=== PATIENT | female | born 1930 | race Caucasian/White ===

== ENCOUNTER 2018-03-10 10:57 | Observation (INO) | payer MEDICARE ==
[2018-03-09 11:23] LABS: BASOPHILS % 0.5 % (0.0-1.0); EOSINOPHILS # (AUTO) 0.2 (0.0-0.4); EOSINOPHILS % 2.3 % (0.0-6.0); HEMATOCRIT 43.5 % (34.2-44.1); HEMOGLOBIN 13.9 g/dL (12.0-16.0); LYMPHOCYTES # (AUTO) 1.5 (1.0-3.2); LYMPHOCYTES % 19.9 % (18.0-39.1); MEAN CORPUSCULAR HEMOGLOBIN 29.2 pg (28-32); MEAN CORPUSCULAR VOLUME 91.4 fL (81-99); MONOCYTES # (AUTO) 0.4 (0.2-0.8); MONOCYTES % 5.5 % (4.4-11.3); NEUTROPHILS # (AUTO) 5.3 (2.1-6.9); NEUTROPHILS % 71.7 % (38.7-80.0); PLATELET COUNT 165 x10e3/uL (140-360); RED BLOOD COUNT 4.76 x10e6/uL (3.6-5.1); RED CELL DISTRIBUTION WIDTH 13.3 % (11.7-14.4)
--- NOTE | 2018-03-09 11:56 | Diagnostic Imaging Report ---
PROCEDURE:CHEST 2 VIEWS TECHNIQUE:PA and lateral chest INDICATION:Preoperative evaluation for knee surgery COMPARISON:None. FINDINGS: Mild symmetric hyperinflation. Multiple calcified granulomas. Lungs otherwise clear and symmetric. No pleural effusions. Normal heart size. Intact skeleton with multilevel degenerative disc disease. Cholecystectomy clips. 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 Dictated by: Mychal Sin M.D. on 03/09/2018 at 11:57 Electronically approved by: Mychal Sin M.D. on 03/09/2018 at 11:57
[~2018-03-10] VITALS: Ht 160 cm; Wt 51.3 kg
[~2018-03-10 10:57] MED LIST: LEVOTHYROXINE50 MCG PO; OMEPRAZOLE40 MG PO
--- OUTSIDE RECORDS SUMMARY | 2018-03-10 11:00 | XMS REPORT ---
Author Author [facility] Address Unknown Phone Unavailable Care Team Providers Care Box Office Agent Name Role Phone JOVAN AMBROSE Unavailable Unavailable Problems This patient has no known problems. Allergies, Adverse Reactions, Alerts This patient has no known allergies or adverse reactions. Medications This patient has no known medications. Results Test Description Test Time Test Comments Text Results Atomic Results Result Comments CHEST 2 VIEWS [place] [address] Patient Name: ABBEY GOLDSMITH MR #: [id number] : 1930 Age/Sex: 87/F Req #: [id number] Adm Physician: Ordered by: MARJ MILLER MD Report #: [id number] Location: OR Room/Bed: Procedure: [id number] DX/ CHEST 2 VIEWS Exam Date: Exam Time: REPORT STATUS: Signed PROCEDURE: CHEST 2 VIEWS TECHNIQUE: PA and lateral chest INDICATION: Preoperative evaluation for knee surgery COMPARISON: None. FINDINGS: Mild symmetric hyperinflation. Multiple calcified granulomas. Lungs otherwise clear and symmetric. No pleural effusions. Normal heart size. Intact skeleton with multilevel degenerative disc disease. Cholecystectomy clips. 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 Dictated by: Jesus Sin M.D. on 03/09/2018 at 11:57 Electronically approved by: Jesus Sin M.D. on 03/09/2018 at 11:57 Dictated By: JESUS SIN MD 115 Transcribed By: MARIO on 03/09/18 115 COPY TO: MARJ MILLER MD
[2018-03-10] MEDS ORDERED: CEFAZOLIN SOD 2 GM/D5W 50ML 50 ML IV ONE (11:17)
[2018-03-10] MEDS ORDERED: BACITRACIN 50,000 UNIT VIAL ONE (13:33)
[2018-03-10] MEDS ORDERED: BUPIVACAINE HCL 0.5% INJ 30 ML VIAL INJ ONE (13:33)
[2018-03-10] MEDS ORDERED: LABETALOL HCL 0 ML ONE (15:51)
[2018-03-10] MEDS ORDERED: MORPHINE SULFATE 2 MG/ML SYR ONE (16:09)
[2018-03-10] MEDS ORDERED: FENTANYL CITRATE/PF 100MCG/2 ML INJ ONE ×2 (16:23→19:17)
[2018-03-10] MEDS ORDERED: LABETALOL HCL 20 ML ONE (17:12)
[2018-03-10] MEDS ORDERED: HYDRALAZINE HCL 20 MG/ML VIAL ONE (17:23)
[2018-03-10] MEDS ORDERED: METOCLOPRAMIDE HCL 10 MG/2ML VIAL ONE (17:52)
[2018-03-10] MEDS ORDERED: DEXAMETHASONE SOD PHOS INJ 4 MG/ML VIAL ONE (19:17)
[2018-03-10] MEDS ORDERED: LIDOCAINE HCL 2% JELLY 5 ML TUBE ONE (19:17)
[2018-03-10] MEDS ORDERED: EYE LUBRICANT OPTH OINT 3.5GM TUBE OP ONE (19:17)
[2018-03-10] MEDS ORDERED: ONDANSETRON HCL INJ 2 MG/ML VIAL ONE (19:17)
[2018-03-10] MEDS ORDERED: LIDOCAINE HCL 2% LOCAL INJ 5 ML SDV VIAL INJ ONE (19:17)
[2018-03-10] MEDS ORDERED: PROPOFOL IV EMULSION 10 MG/ML 20 ML VIAL ONE (19:17)
[2018-03-10] MEDS ORDERED: EPHEDRINE SULFATE INJ 50 MG/10 ML SYR ONE (19:17)
[2018-03-10] MEDS ORDERED: DESFLURANE 240 ML BTL INH ONE (19:17)
[2018-03-10] MEDS ORDERED: MIDAZOLAM HCL 2 MG/2 ML VIAL ONE (19:17)
[2018-03-10 20:30] VITALS: BP 138/63
[2018-03-10] MEDS: LABETALOL HCL 100 MG TAB PO SCH (21:25)
[2018-03-10] MEDS: ACETAMINOPHEN/CODEINE 300MG - 30MG TAB PO PRN (21:37)
[2018-03-10] MEDS ORDERED: ONDANSETRON HCL INJ 2 MG/ML VIAL IV PRN (22:45)
[2018-03-11 00:32] VITALS: BP 138/63
[2018-03-11 01:03] VITALS: BP 142/66
[2018-03-11 01:05] VITALS: BP 142/66
[2018-03-11] MEDS: ACETAMINOPHEN/CODEINE 300MG - 30MG TAB PO PRN (03:22)
[2018-03-11 06:18] VITALS: BP 136/64
[2018-03-11 06:19] VITALS: BP 136/64
--- NOTE | 2018-03-11 06:23 | Operative Report ---
DATE OF PROCEDURE: March 10, 2018 PREOPERATIVE DIAGNOSIS: Left displaced patella fracture. POSTOPERATIVE DIAGNOSIS: Left displaced patella fracture. OPERATION/PROCEDURE PERFORMED The patient underwent an open reduction and tension band fixation of the left patella fracture. COURTESY BUS DRIVER: None. ANESTHESIA: General endotracheal intubation anesthesia. IV FLUIDS: Per the anesthesia record. BRIEF DESCRIPTION OF THE PATIENT'S OPERATIVE PROCEDURE: Ms. Arias was taken to the operating room and placed in the supine position on the operating table. Following induction of general anesthesia, as well as endotracheal intubation, the patient's left lower extremity was examined under anesthesia. She was found to have bruising and ecchymosis overlying her patella. Fluoroscopic evaluation of the patella identified a left patellar fracture with disruption of the articular surface. The patient's lower extremity was prepped and draped in a standard surgical fashion. An incision was created along the anterior surface of the knee. This incision was carried through the skin only. Blunt dissection was used to deepen the incision and to isolate the extensor mechanism. The patellar fracture was easily identified. The fracture site was cleaned thoroughly. The patient's fracture was reduced and held in position with a tenaculum clamp. Two 0.062 K-wires were then inserted through the patella from distal to proximal transfixing the fracture in its reduced position. An 18-gauge wire was then passed through the soft tissues around the patella, and this wire was then tensioned in a figure-of-8 tension band technique providing compression across the patient's fracture site. The 0.062 K-wires were then cut. The knee was placed through a range of motion and found to be stable. Compression was visualized across the fracture site as the knee was placed through motion. Fluoroscopic evaluation demonstrated reduction of the patient's patella fracture and in particular realignment of the patient's articular surface. The wound was copiously irrigated. The soft tissues were closed in a multilayer fashion. Sterile dressings were applied. The patient was also provided a knee immobilizer, awakened and taken to the postanesthesia care unit in stable condition. Job#: [id number] CHRISTIANO
[2018-03-11] MEDS ORDERED: PROMETHAZINE 12.5MG/ NACL 0.9% 50 ML IV PRN (06:45)
[2018-03-11 07:27] LABS: ANION GAP 12.3 mmol/L (8-16); BLOOD UREA NITROGEN 19 mg/dL (7-26); BUN/CREATININE RATIO 25 (6-25); CALCIUM 9.1 mg/dL (8.4-10.2); CARBON DIOXIDE 24 mmol/L (22-29); CHLORIDE 106 mmol/L (98-107); CREATININE, SERUM 0.76 mg/dL (0.57-1.11); EST GLOMERULAR FILTRATION RATE > 60 ML/MIN (60-); GLUCOSE 121 mg/dL (74-118); POTASSIUM 4.3 mmol/L (3.5-5.1); SODIUM 138 mmol/L (136-145)
[2018-03-11 07:42] VITALS: BP 147/67
[2018-03-11] MEDS ORDERED: LEVOTHYROXINE SODIUM 25 MCG TABLET PO SCH (08:00)
--- NOTE | 2018-03-11 08:21 | History and Physical ---
NO DICTATION, LENGTH 3 SECONDS. Job#: [id number] MH
--- NOTE | 2018-03-11 08:31 | History and Physical ---
PRIMARY CARE PHYSICIAN: Dr. Zacarias ORTHOPEDIST: Dr. Roa CHIEF COMPLAINT: Uncontrolled hypertension after left knee surgery. HISTORY OF PRESENT ILLNESS: This is an 87-year-old woman with a history of hypothyroidism and GERD, who had fallen at home. She was brought in electively for left meniscus repair. After surgery, the patient's blood pressure became uncontrolled. Therefore, the patient was admitted for management. Currently, her pain is about 5/10. She denies any chest pain or shortness of breath. The pain is located in the left knee. She does not have a history of hypertension. PAST MEDICAL HISTORY: GERD, hypothyroidism. PAST SURGICAL HISTORY: Cholecystectomy. ALLERGIES: PER ELECTRONIC MEDICAL RECORD. FAMILY HISTORY AND SOCIAL HISTORY: The patient is . She has 4 children. No alcohol, illicits or cigarettes. MEDICATIONS: Per electronic medical record. REVIEW OF SYSTEMS: Denies any dizziness or chest pain. VITAL SIGNS: Reviewed. PHYSICAL EXAMINATION GENERAL APPEARANCE: A tired-appearing woman resting in bed. HEENT: Anicteric. Pupils are responsive to light. No oral lesions. CARDIOVASCULAR: Normal S1 and S2. LUNGS: Moderate breath sounds. ABDOMEN: Soft, nontender, nondistended. EXTREMITIES: Left knee is in a dressing and brace. SKIN: Dry. PSYCHIATRIC: Normal affect. NEUROLOGIC: Alert and oriented times 2. LABS: Reviewed. MEDICATIONS: Reviewed. ASSESSMENT AND PLAN: An 87-year-old woman. 1. Uncontrolled hypertension. Start with labetalol. The blood pressure is better controlled now after receiving labetalol overnight. The heart rate is also improved. The patient was initially tachycardic. TSH is normal. 2. Hypothyroidism. TSH is appropriate at less than 2.5. We will continue Synthroid. 3. Left patellar fracture, status post surgical repair. Continue care per Dr. Roa. 4. Left knee pain. P.R.N. pain medication. 5. Ambulatory dysfunction/gait disturbance. Physical therapy consultation. 6. Prophylaxis: Lovenox and PPI. 7. Disposition: Discharge planning per Dr. Roa. Will continue physical therapy. Continue blood pressure control. Job#: [id number]
[2018-03-11] MEDS ORDERED: LEVOTHYROXINE SODIUM 50 MCG TAB PO SCH (09:00)
[2018-03-11] MEDS ORDERED: PANTOPRAZOLE SOD 40 MG TABEC PO SCH (09:00)
[2018-03-11] MEDS: LABETALOL HCL 100 MG TAB PO SCH (09:06)
[2018-03-11] MEDS ORDERED: ENOXAPARIN SOD INJ 40 MG/0.4 ML SYR SC SCH (17:00)
[2018-03-12] MEDS ORDERED: LEVOTHYROXINE SODIUM 25 MCG TABLET PO SCH (06:00)
== END 2018-03-11 10:32 | disposition home or self-care (01) ==
LOC: OR 10:57 → IMCU 20:11
PROVIDERS: ADMIT Internal Medicine; ATTEND Internal Medicine
PROC: 0QSF04Z Reposition Left Patella with Internal Fixation Device, Open Approach (ICD-10-PCS; principal; 2018-03-10 13:00)
DX: I10 Essential (primary) hypertension (principal); K21.9 Gastro-esophageal reflux disease without esophagitis; E03.9 Hypothyroidism, unspecified; M19.90 Unspecified osteoarthritis, unspecified site; J45.909 Unspecified asthma, uncomplicated; N28.9 Disorder of kidney and ureter, unspecified; S82.032A Displaced transverse fracture of left patella, initial encounter for closed fracture; K58.9 Irritable bowel syndrome, unspecified
CPT/HCPCS: 27524; 36415 ×3; 71046; 76000; 80048; 84443; 85025; 93005 ×2; 97139; G0378 ×2; J0360; J1100; J2001 ×2; J2250; J2270; J2405; J2765